=== PATIENT | male | born 1990 | race Caucasian/White ===

== ENCOUNTER 2018-05-06 16:21 | Inpatient (IN) | payer OTHER ==
[~2018-05-06] VITALS: Ht 180.3 cm; Wt 118.0 kg
[2018-05-06 16:46] VITALS: Ht 180.3 cm; Wt 118.0 kg
[2018-05-06 19:17] LABS: CALCIUM 8.7 mg/dL (8.5-10.1); CARBON DIOXIDE 26.2 mmol/L (21-32); CHLORIDE SERUM 100 mmol/L (98-107); CREATININE SERUM 1.1 mg/dL (0.7-1.3); GFR1 > 60 mL/min; GLUCOSE SERUM 111 mg/dL (74-106); POTASSIUM SERUM 3.5 mmol/L (3.5-5.1); SODIUM SERUM 132 mmol/L (136-145)
[2018-05-06 19:21] LABS: ALBUMIN 3.4 g/dL (3.4-5.0); ALKALINE PHOSPHATASE 77 U/L (46-116); ALT/SGPT 88 U/L (16-63); AST/SGOT 22 U/L (15-37); BILIRUBIN TOTAL 2.5 mg/dL (0.20-1.00); LIPASE 76 IU/L (73-393); TOTAL PROTEIN, SERUM 7.5 g/dL (6.4-8.2)
[2018-05-06 19:23] LABS: PLATELET COUNT 231 x10^3mcL (130-400); RED CELL DISTRIBUTION WIDTH 12.4 % (11.5-14.5)
[2018-05-06 19:28] LABS: BAND NEUTROPHIL 5 % (0-10); BASOPHIL 0 % (0-2); MONOCYTE 6 % (0-7); SEGMENTED NEUTROPHILS 82 % (37-75)
[2018-05-06 19:29] LABS: rbc morphology (normal/abnorm) ABNORMAL (NORMAL)
[2018-05-06 21:36] LABS: CHOLESTEROL/HDL RATIO 4.4; MAGNESIUM 1.8 mg/dL (1.8-2.4); PHOSPHOROUS 2.8 mg/dL (2.5-4.9)
[2018-05-06 21:44] VITALS: BP 121/75
[2018-05-07 00:10] LABS: microscopic required? NO
[2018-05-07 00:28] LABS: UA SPECIFIC GRAVITY 1.015 (1.005-1.035); urine erythrocyte NEGATIVE (NEGATIVE)
[2018-05-07 00:38] LABS: AMPHETAMINE QUAL UR NONE DETECTED (See below)
[2018-05-07] MEDS ORDERED: LIPI10 PO (02:50)
[2018-05-07] MEDS ORDERED: LEVOTHYROXINE0.15 M2 PO (02:54)
[2018-05-07 06:20] LABS: PLATELET COUNT 246 x10^3mcL (130-400); RED CELL DISTRIBUTION WIDTH 12.7 % (11.5-14.5)
[2018-05-07 06:48] LABS: CALCIUM 8.5 mg/dL (8.5-10.1); CARBON DIOXIDE 23.4 mmol/L (21-32); CHLORIDE SERUM 99 mmol/L (98-107); GFR1 > 60 mL/min; GLUCOSE SERUM 128 mg/dL (74-106); MAGNESIUM 1.8 mg/dL (1.8-2.4); PHOSPHOROUS 2.3 mg/dL (2.5-4.9); POTASSIUM SERUM 3.8 mmol/L (3.5-5.1); SODIUM SERUM 134 mmol/L (136-145)
[2018-05-07 06:49] LABS: BILIRUBIN DIRECT 0.75 mg/dL (0.0-0.2); BILIRUBIN TOTAL 2.42 mg/dL (0.20-1.00); TOTAL PROTEIN, SERUM 7.1 g/dL (6.4-8.2)
[2018-05-07 09:31] VITALS: BP 129/78
[2018-05-07 13:52] LABS: BAND NEUTROPHIL 6 % (0-10); MONOCYTE 7 % (0-7); SEGMENTED NEUTROPHILS 81 % (37-75)
[2018-05-07 13:53] LABS: PLATELET MORPHOLOGY PLATELETS NORMAL; rbc morphology (normal/abnorm) NORMAL (NORMAL)
[2018-05-07 19:11] LABS: PLATELET COUNT 354 x10^3mcL (130-400); RED CELL DISTRIBUTION WIDTH 12.6 % (11.5-14.5)
[2018-05-07 19:15] LABS: CALCIUM 8.1 mg/dL (8.5-10.1); CARBON DIOXIDE 25.5 mmol/L (21-32); CHLORIDE SERUM 101 mmol/L (98-107); CREATININE SERUM 1.2 mg/dL (0.7-1.3); GFR1 > 60 mL/min; GLUCOSE SERUM 174 mg/dL (74-106); POTASSIUM SERUM 5.2 mmol/L (3.5-5.1); SODIUM SERUM 133 mmol/L (136-145)
[2018-05-07 19:20] LABS: ALBUMIN 2.6 g/dL (3.4-5.0); ALKALINE PHOSPHATASE 81 U/L (46-116); ALT/SGPT 119 U/L (16-63); AST/SGOT 107 U/L (15-37); BILIRUBIN TOTAL 2.04 mg/dL (0.20-1.00); TOTAL PROTEIN, SERUM 6.7 g/dL (6.4-8.2)
[2018-05-07 20:06] LABS: BAND NEUTROPHIL 4 % (0-10); BASOPHIL 0 % (0-2); MONOCYTE 3 % (0-7); SEGMENTED NEUTROPHILS 88 % (37-75); rbc morphology (normal/abnorm) NORMAL (NORMAL)
[2018-05-07 20:30] VITALS: BP 130/74
[2018-05-07 23:34] VITALS: BP 113/77
[2018-05-08 03:23] VITALS: BP 143/88
[2018-05-08 05:27] LABS: BASOPHIL % 0.1 % (0-2); PLATELET COUNT 251 x10^3mcL (130-400)
[2018-05-08 05:34] LABS: MAGNESIUM 1.9 mg/dL (1.8-2.4); PHOSPHOROUS 2.4 mg/dL (2.5-4.9)
[2018-05-08 06:45] LABS: ALKALINE PHOSPHATASE 80 U/L (46-116); ALT/SGPT 101 U/L (16-63); AST/SGOT 64 U/L (15-37); CALCIUM 8.1 mg/dL (8.5-10.1); CARBON DIOXIDE 27.1 mmol/L (21-32); CHLORIDE SERUM 96 mmol/L (98-107); CREATININE SERUM 1.1 mg/dL (0.7-1.3); GFR1 > 60 mL/min; GLUCOSE SERUM 172 mg/dL (74-106); SODIUM SERUM 131 mmol/L (136-145); TOTAL PROTEIN, SERUM 6.2 g/dL (6.4-8.2)
[2018-05-08 06:57] LABS: ALBUMIN 2.4 g/dL (3.4-5.0)
[2018-05-08 08:30] VITALS: BP 131/87
[2018-05-08 11:15] VITALS: BP 136/86
[2018-05-08 16:53] VITALS: BP 128/78
[2018-05-08 21:06] VITALS: BP 118/73
[2018-05-09 06:01] VITALS: BP 152/91
[2018-05-09 07:09] LABS: PLATELET COUNT 312 x10^3mcL (130-400); RED CELL DISTRIBUTION WIDTH 12.8 % (11.5-14.5)
[2018-05-09 07:15] LABS: ALKALINE PHOSPHATASE 79 U/L (46-116); ALT/SGPT 80 U/L (16-63); AST/SGOT 49 U/L (15-37); BILIRUBIN TOTAL 0.5 mg/dL (0.20-1.00); CALCIUM 8.3 mg/dL (8.5-10.1); CARBON DIOXIDE 23.8 mmol/L (21-32); CHLORIDE SERUM 98 mmol/L (98-107); CREATININE SERUM 0.9 mg/dL (0.7-1.3); GFR1 > 60 mL/min; GLUCOSE SERUM 131 mg/dL (74-106); POTASSIUM SERUM 3.2 mmol/L (3.5-5.1); SODIUM SERUM 132 mmol/L (136-145); TOTAL PROTEIN, SERUM 6.5 g/dL (6.4-8.2)
[2018-05-09 07:17] LABS: ALBUMIN 2.4 g/dL (3.4-5.0)
[2018-05-09 08:21] VITALS: BP 147/100
[2018-05-09 16:19] LABS: BAND NEUTROPHIL 4 % (0-10); MONOCYTE 3 % (0-7); SEGMENTED NEUTROPHILS 88 % (37-75)
[2018-05-09 16:21] LABS: rbc morphology (normal/abnorm) NORMAL (NORMAL)
[2018-05-09 16:25] VITALS: BP 176/102
[2018-05-09 18:45] VITALS: BP 151/90
[2018-05-09 23:24] VITALS: BP 119/75
[2018-05-10 05:46] VITALS: BP 142/84
[2018-05-10 06:54] LABS: ALKALINE PHOSPHATASE 81 U/L (46-116); ALT/SGPT 84 U/L (16-63); AST/SGOT 47 U/L (15-37); BILIRUBIN TOTAL 0.54 mg/dL (0.20-1.00); CALCIUM 8.2 mg/dL (8.5-10.1); CARBON DIOXIDE 23.3 mmol/L (21-32); CHLORIDE SERUM 101 mmol/L (98-107); CREATININE SERUM 0.9 mg/dL (0.7-1.3); GFR1 > 60 mL/min; GLUCOSE SERUM 117 mg/dL (74-106); POTASSIUM SERUM 3.8 mmol/L (3.5-5.1); SODIUM SERUM 135 mmol/L (136-145); TOTAL PROTEIN, SERUM 6.3 g/dL (6.4-8.2)
[2018-05-10 06:57] LABS: ALBUMIN 2.4 g/dL (3.4-5.0)
[2018-05-10 07:25] LABS: BASOPHIL % 0.3 % (0-2); PLATELET COUNT 365 x10^3mcL (130-400); RED CELL DISTRIBUTION WIDTH 12.9 % (11.5-14.5)
[2018-05-10 08:30] VITALS: BP 125/85
[2018-05-10] MEDS ORDERED: LEVAQUIN500 M1 PO (12:51)
[2018-05-10] MEDS ORDERED: FLAGYL500 MG PO (12:52)
[2018-05-10 13:18] VITALS: BP 125/85
== END 2018-05-10 13:54 | disposition home or self-care (01) | DRG 710 ==
LOC: ED 16:21 → MU 20:44 → IC 20:44 → MU 21:31 → IC 05-07 20:08 → MU 05-08 13:22
PROVIDERS: Emergency Medicine; Surgery; ADMIT Internal Medicine
PROC: 0FJ44ZZ Inspection of Gallbladder, Percutaneous Endoscopic Approach (ICD-10-PCS; 2018-05-07)
PROC: BF13YZZ Fluoroscopy of Gallbladder and Bile Ducts using Other Contrast (ICD-10-PCS; 2018-05-07)
PROC: 0FT40ZZ Resection of Gallbladder, Open Approach (ICD-10-PCS; principal; 2018-05-07 14:00)
DX: A41.9 Sepsis, unspecified organism (principal); K81.0 Acute cholecystitis; K76.0 Fatty (change of) liver, not elsewhere classified; E87.1 Hypo-osmolality and hyponatremia; E66.01 Morbid (severe) obesity due to excess calories; K82.A1 Gangrene of gallbladder in cholecystitis; F12.10 Cannabis abuse, uncomplicated; E03.9 Hypothyroidism, unspecified; E78.00 Pure hypercholesterolemia, unspecified; Z68.36 Body mass index [BMI] 36.0-36.9, adult
CPT/HCPCS: 78226; 94150; A9537; C1887; J0330; J1170; J2175; J2250; J2270; J2405; J2543; J3010; J3490; J7030; Q0092; Q9967